=== PATIENT | female | born 1965 | race African-American/Black ===

== ENCOUNTER 2024-04-05 13:02 | Emergency (ER) | payer SELFPAY ==
[~2024-04-05] VITALS: Ht 157.5 cm; Wt 85.4 kg
[2024-04-05 13:09] VITALS: TEMP 98.1
[2024-04-05 13:29] VITALS: BP 144/105; PULSE 85; RESP 18; O2SAT 100
--- NOTE | 2024-04-05 13:57 | ED.PDOC ---
History of Present Illness HPI Comments This is a 58-year-old female who comes in with chief complaint of needing a medication refill. The patient states that she moved from [place] and she has a history of arthritis as well as SLE. She states that her doctor gave her some medications but her spouse is older and accidentally threw away all her medication. The patient returns now needing the moment a medication refill but she has no copies of her medications. Chief Complaint: Body Pain Time Seen by MD: 13:16 Reviewed Notes: Nurses Notes, Medications, Allergies (No allergies to medications) Allergies: Coded Allergies: NO KNOWN ALLERGIES (Unverified , 04/05/24) Information Source: Patient Mode of Arrival: Ambulatory Severity: None Timing: Days Duration: Since onset Prehospital treatment: None Associated signs and symptoms No symptoms at this time Past Medical History PAST MEDICAL HISTORY: Arthritis (Rheumatoid arthritis) Past Medical History (Other): SLE Surgical History: Appendectomy, Cholecystectomy, Hysterectomy Surgical History (Other): Feet surgery EAP COUNSELOR History: Denies all EAP COUNSELOR Hx Family History Family History: Family hx of DM, Family hx of heart nettie Social History Smoker: Non-Smoker Alcohol: Denies ETOH Use Drugs: Denies Drug Use Lives In: Home Constitutional: denies: chills, diaphoresis, fatigue, fever, malaise, sweats, weakness, others EENTM: denies: blurred vision, double vision, ear bleeding, ear discharge, ear drainage, ear pain, ear ringing, eye pain, eye redness, hearing loss, mouth pain, mouth swelling, nasal discharge, nose bleeding, nose congestion, nose pain, photophobia, tearing, throat pain, throat swelling, voice changes, others Respiratory: denies: cough, hemoptysis, orthopnea, SOB at rest, shortness of breath, SOB with excertion, stridor, wheezing, others Cardiovascular: denies: chest pain, dizzy spells, diaphoresis, Dyspnea on exertion, edema, irregular heart beat, left arm pain, lightheadedness, palpitations, PND, syncope, others Gastrointestinal: denies: abdomen distended, abdominal pain, blood streaked bowels, constipated, diarrhea, dysphagia, difficulty swallowing, hematemesis, melena, nausea, poor appetite, poor fluid intake, rectal bleeding, rectal pain, vomiting, others Genitourinary: denies: abnormal vagina bleeding, burning, dyspareunia, dysuria, flank pain, frequency, hematuria, incontinence, pain, , vagina discharge, urgency, others Neurological: denies: dizziness, fainting, headache, left sided numbness, left sided weakness, numbness, paresthesia, pre-existing deficit, right sided numbness, right sided weakness, seizure, speech problems, tingling, tremors, weakness, others Musculoskeletal: denies: back pain, gout, joint pain, joint swelling, muscle pain, muscle stiffness, neck pain, others Integumetry: denies: bruises, change in color, change in hair/nails, dryness, laceration, lesions, lumps, rash, wounds, others Allergic/Immunocompromised: denies: Difficulty Healing, Frequent Infections, Hives, Itching, others Hematologic/Lymphatic: denies: anemia, blood clots, easy bleeding, easy bruising, swollen glands, others Endocrine: denies: excessive hunger, excessive sweating, excessive thirst, excessive urination, flushing, intolerance to cold, intolerance to heat, unexplained weight gain, unexplained weight loss, others Psychiatric: denies: anxiety, bipolar disorder, depression, hopeless, panic disorder, schizophrenia, sleepless, suicidal, others Physical Exam General Appearance: No Apparent Distress HEENT: Normal ENT Inspection, Pharynx Normal, TMs Normal Neck: Full Range of Motion, Non-Tender, Normal, Normal Inspection Respiratory: Chest Non-Tender, Lungs Clear, No Accessory Muscle Use, No Respiratory Distress, Normal Breath Sounds Cardiovascular: No Edema, No JVD, No Murmur, No Gallop, Normal Peripheral Pulses, Regular Rate/Rhythm Breast Exam: Deferred Gastrointestinal: No Organomegaly, Non Tender, No Pulsatile Mass, Normal Bowel Sounds, Soft Genitalia: Deferred Pelvic: Deferred Rectal: Deferred Extremities: No calf tenderness, Normal capillary refill, Normal inspection, Normal range of motion, Non-tender, No pedal edema Musculoskeletal : Apperance: Normal Neurologic: Alert, aerospace assembler II-XII nml as Tested, No Motor Deficits, Normal Affect, Normal Mood, No Sensory Deficits Cerebellar Function: Normal Reflexes: Normal Skin: Dry, Normal Color, Warm Lymphatic: No Adenopathy Was a procedure done? Was a procedure done?: No Differential Dx Considerations may include: Medication refill X-Ray, Labs, Meds, VS Vital Signs Date Time Temp Pulse Resp B/P (MAP) Pulse Ox O2 Delivery O2 Flow Rate FiO2 04/05/24 13:29 98.1 85 18 144/105 (118) 100 The patient could not give us the exact dosages of her medications and had no copy so we were unable to refill the medications The patient was discharged and told to follow up with her primary care doctor at the end of the month The patient was also told to call her doctor in [place] where she came from to see if they can get her the proper medications and dosages so she can have them refilled Time of 1ST Reevaluation: 13:56 Reevaluation 1ST: Unchanged Patient Education/Counseling: Diagnosis, Treatment, Prognosis, Need For Follow Up Family Education/Counseling: No Family Present Departure 1 Departure Time of Disposition: 13:56 Impression: Primary Impression: Well adult health check Disposition: 01 HOME / SELF CARE / HOMELESS Condition: Fair Discharged With: Self Critical Care Note Critical Care Time?: No Stability Stability form required: No Heart Score Heart Score: Heart Score Response (Comments) Value History N/A 0 EKG N/A 0 Age N/A 0 Risk Factors N/A 0 Troponin N/A 0 Total 0 LIBBY RAMOS MD Apr 05, 2024 13:57
== END 2024-04-05 13:51 | disposition home or self-care (01) ==
LOC: ER 13:02
DX: Z76.0 Encounter for issue of repeat prescription (principal); M32.9 Systemic lupus erythematosus, unspecified; M06.9 Rheumatoid arthritis, unspecified; Z90.49 Acquired absence of other specified parts of digestive tract; Z90.710 Acquired absence of both cervix and uterus

== ENCOUNTER 2024-04-08 12:30 | Emergency (ER) | payer OTHER ==
[~2024-04-08] VITALS: Ht 160 cm; Wt 82.8 kg
[2024-04-08] MEDS: KETOROLAC TROMETH 60MG/2ML VIAL IM ONE (14:21)
[2024-04-08] MEDS ORDERED: HYDR2.5L4 TOP (14:25)
[2024-04-08] MEDS ORDERED: PREG100C PO (14:25)
--- NOTE | 2024-04-08 14:28 | ED.PDOC ---
History of Present Illness HPI Comments This is a 58 year old female with RA and chronic low back pain, Just moved from [facility] meds were thrown away by mistake. Denies any new injuries. Chief Complaint: Back Pain Time Seen by MD: 13:05 Primary Care Provider: robinson Reviewed Notes: Nurses Notes, Medications, Allergies Allergies: Coded Allergies: NO KNOWN ALLERGIES (Unverified , 04/05/24) Information Source: Patient Mode of Arrival: Ambulatory Past Medical History PAST MEDICAL HISTORY: Arthritis Surgical History: Appendectomy, Cholecystectomy, Hysterectomy SENIOR HUMAN RESOURCES REPRESENTATIVE History: Denies all SENIOR HUMAN RESOURCES REPRESENTATIVE Hx Family History Family History: Family hx of DM, Family hx of heart nettie Social History Smoker: Non-Smoker Alcohol: Denies ETOH Use Drugs: Denies Drug Use Lives In: Home Musculoskeletal: reports: back pain, joint pain, joint swelling All Other Systems: Reviewed and Negative Physical Exam General Appearance: No Apparent Distress, Normal HEENT: Normal ENT Inspection, PERRL/EOMI, Pharynx Normal, TMs Normal Neck: Full Range of Motion, Non-Tender, Normal, Normal Inspection Respiratory: Inspiration, No Respiratory Distress, Normal Breath Sounds Cardiovascular: Regular Rate/Rhythm Breast Exam: Deferred Gastrointestinal: Non Tender, Normal Bowel Sounds, Soft Genitalia: Deferred Pelvic: Deferred Rectal: Deferred Extremities: Normal inspection, Normal range of motion, Non-tender Neurologic: Alert, No Motor Deficits, Normal Affect, Normal Mood Cerebellar Function: NOT DONE Reflexes: NOT DONE Skin: Dry, Warm Lymphatic: No Adenopathy Was a procedure done? Was a procedure done?: No Differential Dx Considerations may include: fracture, vs sprain X-Ray, Labs, Meds, VS Vital Signs Date Time Temp Pulse Resp B/P (MAP) Pulse Ox O2 Delivery O2 Flow Rate FiO2 04/08/24 12:46 98.0 100 19 138/109 (119) 96 X-Ray, Labs, Meds, VS Comment Patient seen and examined by me. I will refill 2 of her Meds, I will also give the patient Toradol for pain. She has follow-up for renewal of Meds and getting established with a new MD on April 14. No diagnostic imaging indicated. Time of 1ST Reevaluation: 14:19 Reevaluation 1ST: Improved Patient Education/Counseling: Diagnosis, Treatment, Prognosis, Need For Follow Up Family Education/Counseling: No Family Present Departure 1 Departure Time of Disposition: 14:19 Impression: Primary Impression: Musculoskeletal pain Additional Impression: Encounter for medication refill Disposition: HOME / SELF CARE / HOMELESS Condition: Good Additional Instructions: Make sure you follow-up up with a new provider, you can get a name for pain managment Try heat and ice to help your pain. e-Prescriptions Hydrocortisone (Topical) (Hydrocortisone) 2.5 % Lot 1 APPLIC TOP BID PRN, #60 ML Prov: ADRIAN AHUMADA 04/08/24 Discharged With: Self Critical Care Note Critical Care Time?: No Stability Stability form required: No ADRIAN AHUMADA Apr 08, 2024 14:28
[2024-04-08 14:32] VITALS: BP 138/89; PULSE 19; RESP 19; TEMP 98; O2SAT 96
== END 2024-04-08 14:28 | disposition home or self-care (01) ==
LOC: ER 12:30
DX: G89.29 Other chronic pain (principal); M79.18 Myalgia, other site; M54.50 Low back pain, unspecified; M19.90 Unspecified osteoarthritis, unspecified site; Z76.0 Encounter for issue of repeat prescription; Z90.49 Acquired absence of other specified parts of digestive tract; Z90.710 Acquired absence of both cervix and uterus
CPT/HCPCS: 96372; 99283; J1885